=== PATIENT | female | born 1980 | race Caucasian/White ===

== ENCOUNTER 2023-10-14 20:08 | Emergency (ER) | payer OTHER ==
[2023-10-14 20:15] VITALS: BP 134/84; PULSE 81; RESP 16; TEMP 98.4; BMI 26.6
[2023-10-14] MEDS ORDERED: FAMOTIDINE 20 MG/50 ML IVPB 20 MG/50 ML MG IVPB ONE (21:16)
[2023-10-14] MEDS ORDERED: MAG HYDROX/AL HYDROX/SIMETH 30 ML UNIT-DOSE CUP ONE (21:16)
[2023-10-14 21:21] LABS: BASO % 0.2 % (0-2.0); EOS % 0.2 % (0-4.5); LYMPH % 22.3 % (8-40); MCH 30.1 pg (25.7-33.7); MCHC 34.1 g/dl (32.0-36.0); MEAN CELL VOLUME 88.4 fl (80-96); MEAN PLT VOLUME 8.2 fl (7.5-11.1); MONO % 6.1 % (3.8-10.2); NEUT % 71.2 % (42.8-82.8); PLATELET COUNT 321 10^3/uL (134-434); RBC 4.97 M/mm3 (3.60-5.2); RDW 13.1 % (11.6-15.6); WHITE BLOOD COUNT 8.6 K/mm3 (4.0-10.0)
[2023-10-14 21:29] LABS: INR 1.02 (0.83-1.09); PROTHROMBIN TIME (PATIENT) 11.8 SEC (9.7-13.0)
[2023-10-14] MEDS: FAMOTIDINE 20 MG/50 ML IVPB 20 MG/50 ML MG IVPB ONE (21:37)
[2023-10-14] MEDS: MAG HYDROX/AL HYDROX/SIMETH 30 ML UNIT-DOSE CUP PO ONE (21:37)
[2023-10-14 21:42] LABS: CALCIUM 9.2 mg/dL (8.5-10.1)
[2023-10-14 21:43] LABS: ALBUMIN 3.8 g/dl (3.4-5.0); BLOOD UREA NITROGEN 19.2 mg/dL (7-18)
[2023-10-14 21:46] LABS: CREATININE 0.8 mg/dL (0.55-1.3)
[2023-10-14 21:48] LABS: BILIRUBIN,TOTAL 0.3 mg/dL (0.2-1); TOT PROT 7.9 g/dl (6.4-8.2)
== END 2023-10-14 23:45 | disposition home or self-care (01) ==
LOC: JER 20:08
PROC: 3E033GC Introduction of Other Therapeutic Substance into Peripheral Vein, Percutaneous Approach (ICD-10-PCS; principal; 2023-10-14)
DX: R07.2 Precordial pain (principal); R00.2 Palpitations; R07.0 Pain in throat; I10 Essential (primary) hypertension; R11.0 Nausea
CPT/HCPCS: 36415; 71046-TC-FY; 80053; 84484; 84703; 85025; 85610; 85730; 86850; 86900; 86901; 93005; 93010; 99285-25